=== PATIENT | female | born 1950 | race Two or more races ===

== ENCOUNTER → 2016-07-30 | Day surgery (SDC) | payer BC ==
[~2016-07-30] VITALS: Ht 152.4 cm; Wt 50.8 kg
[2016-07-30] VITALS (8 sets, daily range): BP systolic 135–159; BP diastolic 69–85
[~2016-07-30] MED LIST: ASPIR 8181 MG ORAL; Atropine Inj 1mg/10ml Syr IV PRN; BSS 15ml BTL ONE; BSS 500ml btl ONE; Bupivacaine 0.75% 30ml vial INJ ONE; Dexamethasone 4mg/ml vial ONE; DiphenhydrAMINE 50mg/ml Inj IVP PRN; EPINEPHrine 1mg/1ml Amp ONE; Goniosol 2.5% Opth Soln - 15ml ONE; Hydromorphone 0.5mg/0.5ml inj IVP PRN; Kenalog-40 1ml Vial ONE; Ketorolac 30mg Inj IV PRN; Ketorolac 30mg Inj ONE; Ketorolac 60mg Inj IV PRN; LORazepam Inj 2mg/ml 1ml IV PRN; LR 1000ml 1,000 ML IVLG SCH; LR 1000ml ONE; Labetalol 5mg/ml 20ml vial IV PRN; Lidocaine 1% MPF 10mg/ml 5ml ONE; Lidocaine 2% MPF 5ml Vial INJ ONE; Maxitrol Opth Oint 3.5gm ONE; Meperidine 25mg/ml Inj IV PRN; Metoclopramide 10mg/2ml Inj IVP PRN; Midazolam 2mg/2ml Inj IVP ONE; Midazolam 2mg/2ml Inj IVP PRN; NS Irrig 1000ml ONE; Norco 5mg/325mg tab ORAL PRN; Norco 7.5mg/325mg tab ORAL PRN; Oxycodone/Acetaminophen 5-325 ORAL PRN; Povidone-Iodine 5% opth solution ONE; Pred Forte 1% Opth Susp 1ml ONE; Propofol 10mg/ml 20ml IV ONE; fentaNYL 100 mcg/2 mL IV ONE; fentaNYL 100 mcg/2 mL IV PRN
[2016-07-30 16:33] LABS: BASOPHILS % (AUTO) 0.8 % (0.0-2.0); EOSINOPHILS % (AUTO) 1.5 % (0.0-3.0); LYMPHOCYTES % (AUTO) 26.6 % (20.0-45.0); MEAN CORPUSCULAR HEMOGLOBIN 30.3 PG (27.0-31.0); MEAN CORPUSCULAR HGB CONC 34.3 G/DL (32.0-36.0); MEAN CORPUSCULAR VOLUME 88 FL (80-99); MEAN PLATELET VOLUME 7.2 FL (6.5-10.1); MONOCYTES % (AUTO) 6.7 % (1.0-10.0); NEUTROPHILS % (AUTO) 64.4 % (45.0-75.0); PLATELET COUNT 424 K/UL (150-450); RED BLOOD COUNT 4.51 M/UL (4.20-5.40); RED CELL DISTRIBUTION WIDTH 11.3 % (11.6-14.8); WHITE BLOOD COUNT 8.9 K/UL (4.8-10.8)
[2016-07-30 16:53] LABS: INR 1.1 (0.9-1.1); PROTHROMBIN TIME 10.7 SEC (9.30-11.50)
[2016-07-30 17:00] LABS: ALANINE AMINOTRANSFERASE 37 U/L (3-33); ALBUMIN/GLOBULIN RATIO 1.4 (1.0-2.7); ANION GAP 18 (5-15); ASPARTATE AMINO TRANSFERASE 40 U/L (5-40); CALCIUM 10.5 mg/dL (8.6-10.2); CARBON DIOXIDE 25 mEQ/L (20-30); CHLORIDE 99 mEQ/L (98-107); CREATININE 0.8 mg/dL (0.5-0.9); GLOMERULAR FILTRATION RATE > 60 mL/min (>60); HEMOLYSIS 1; POTASSIUM 3.8 mEQ/L (3.4-4.9); SODIUM 142 mEQ/L (135-145); TOTAL PROTEIN 8.5 g/dL (6.6-8.7)
--- NOTE | 2016-07-30 17:15 | Anethesia Preoperative Eval ---
Anesthesia Pre-op PMH/ROS General Date of Evaluation: Jul 30, 2016 Time of Evaluation: 17:46 Anesthesiologist: Ghazal ASA Score: ASA 3 - Emergency Mallampati Score Class I : Soft palate, uvula, fauces, pillars visible Class II: Soft palate, uvula, fauces visible Class III: Soft palate, base of uvula visible Class IV: Only hard plate visible Mallampati Classification: Class II Surgeon: Karlee Diagnosis: Retinal Detachment OS Surgical Procedure: Vitrectomy OS Anesthesia History: none Family History: no anesthesia problems Allergies: Coded Allergies: No Known Allergies (Unverified , 07/30/16) Medications: see eMAR Past Medical History Cardiovascular: Reports: HTN, other - HL Anesthesia Pre-op Phys. Exam Physician Exam Last Vital Signs Date Time Temp Pulse Resp B/P Pulse Ox O2 Delivery O2 Flow Rate FiO2 07/30/16 16:39 98.2 72 14 158/84 100 Room Air Constitutional: NAD Neurologic: CN 2-12 intact Cardiovascular: RRR Respiratory: CTA Gastrointestinal: S/NT/ND Airway Exam Mallampati Score: Class II MO: full ROM: limited Teeth: intact Anesthesia Pre-op A/P Labs Hematology Test 07/30/16 16:15 White Blood Count 8.9 K/UL (4.8-10.8) Red Blood Count 4.51 M/UL (4.20-5.40) Hemoglobin 13.6 G/DL (12.0-16.0) Hematocrit 39.8 % (37.0-47.0) Mean Corpuscular Volume 88 FL (80-99) Mean Corpuscular Hemoglobin 30.3 PG (27.0-31.0) Mean Corpuscular Hemoglobin Concent 34.3 G/DL (32.0-36.0) Red Cell Distribution Width 11.3 % (11.6-14.8) L Platelet Count 424 K/UL (150-450) Mean Platelet Volume 7.2 FL (6.5-10.1) Neutrophils (%) (Auto) 64.4 % (45.0-75.0) Lymphocytes (%) (Auto) 26.6 % (20.0-45.0) Monocytes (%) (Auto) 6.7 % (1.0-10.0) Eosinophils (%) (Auto) 1.5 % (0.0-3.0) Basophils (%) (Auto) 0.8 % (0.0-2.0) Coagulation Test 07/30/16 16:15 Prothrombin Time 10.7 SEC (9.30-11.50) Prothromb Time International Ratio 1.1 (0.9-1.1) Activated Partial Thromboplast Time 28 SEC (23-33) Chemistry Test 07/30/16 16:15 Sodium Level Pending Potassium Level Pending Chloride Level Pending Carbon Dioxide Level Pending Blood Urea Nitrogen Pending Creatinine Pending Estimat Glomerular Filtration Rate Pending Glucose Level Pending Calcium Level Pending Total Bilirubin Pending Aspartate Amino Transf (AST/SGOT) Pending Alanine Aminotransferase (ALT/SGPT) Pending Alkaline Phosphatase Pending Total Protein Pending Albumin Pending Globulin Pending Risk Assessment & Plan Assessment: ASA 3E Plan: GA Status Change Before Surgery: Daniel Patel MD Jul 30, 2016 17:15
--- NOTE | 2016-07-30 17:16 | 48 Hour Post Anesthesia Eval ---
Post Anesthesia Evaluation Procedure: Vitrectomy OS Date of Evaluation: Jul 30, 2016 Time of Evaluation: 21:53 Blood Pressure Systolic: 156 0: 78 Pulse Rate: 78 Respiratory Rate: 18 Temperature (Fahrenheit): 97.6 O2 Sat by Pulse Oximetry: 97 Airway: patent Nausea: No Vomiting: No Pain Intensity: 1 Hydration Status: adequate Cardiopulmonary Status: Stable Mental Status/LOC: patient returned to baseline Follow-up Care/Observations: 0 Post-Anesthesia Complications: 0 Follow-up care needed: ready to discharge Daniel Harman MD Jul 30, 2016 17:16
--- NOTE | 2016-07-30 17:16 | Immediate Post-Op Evaluation ---
Immediate Post-Op Evalulation Immediate Post-Op Evalulation Procedure: Vitrectomy OS Date of Evaluation: Jul 30, 2016 Time of Evaluation: 19:49 IV Fluids: 800 LR Blood Products: 0 Estimated Blood Loss: 1 Urinary Output: 0 Blood Pressure Systolic: 149 Blood Pressure Diastolic: 78 Pulse Rate: 82 Respiratory Rate: 16 O2 Sat by Pulse Oximetry: 96 Temperature (Fahrenheit): 97.5 Pain Score (1-10): 1 Nausea: No Vomiting: No Complications 0 Patient Status: awake, reacts, patent, none Hydration Status: adequate Daniel Harman MD Jul 30, 2016 17:16
--- NOTE | 2016-07-30 17:51 | Emergency Room Report ---
History of Present Illness General Chief Complaint: Eye Problems Source: Patient Present Illness HPI The patient is a 66-year-old female presenting with Left eye retinal detachment. The patient states that she has noticed an obstruction to her vision from the left eye about one month prior. The patient states that she notices darkness over the left mid lower field of vision occasionally. Patient then saw her primary care physician who diagnosed her with retinal detachment today. Patient was told to come to the emergency department for same day surgery. The patient denies any pain in the eye and denies blurred vision, dizziness, fever, chills, headache, or any other symptoms. Allergies: Coded Allergies: No Known Allergies (Unverified , 07/30/16) Patient History Past Medical History: see triage record Pertinent Family History: none Now: No Reviewed Nursing Documentation: PMH: Agreed, PSxH: Agreed Nursing Documentation-PMH Past Medical History: No History, Except For Review of Systems All Other Systems: negative except mentioned in HPI Physical Exam Vital Signs Date Time Temp Pulse Resp B/P Pulse Ox O2 Delivery O2 Flow Rate FiO2 07/30/16 15:12 98.2 79 14 158/84 100 Room Air Sp02 EP Interpretation: reviewed, normal General Appearance: no apparent distress, alert, GCS 15, non-toxic Head: normocephalic, atraumatic Eyes: bilateral eye EOMI, bilateral eye PERRL, bilateral eye normal inspection ENT: hearing grossly normal, normal pharynx, no angioedema, normal voice Neck: full range of motion, supple/symm/no masses Respiratory: chest non-tender, lungs clear, normal breath sounds, speaking full sentences Cardiovascular #1: regular rate, rhythm, no edema Neurologic: alert, oriented x3, responsive, motor strength/tone normal, sensory intact, speech normal Psychiatric: judgement/insight normal, memory normal, mood/affect normal, no suicidal/homicidal ideation Skin: normal color, no rash, warm/dry, well hydrated Lymphatic: no adenopathy Medical Decision Making PA Attestation Dr. Cheng is my supervising physician. Patient management was discussed with my supervising physician Diagnostic Impression: Primary Impression: Retinal detachment ER Course The patient is a 66-year-old female presenting with Left eye retinal detachment Differential diagnosis considered: Retinal detachment, uveitis, artery/vein occlusion Physical exam: No apparent distress. Eyes: PERRL. EOMI. No periorbital edema. No injection. Please see nursing notes for visual acuity otherwise exam unremarkable CBC, CMP, PT/PTT unremarkable. 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 The patient is now sent to surgery. Laboratory Tests Test 07/30/16 16:15 White Blood Count 8.9 K/UL (4.8-10.8) Red Blood Count 4.51 M/UL (4.20-5.40) Hemoglobin 13.6 G/DL (12.0-16.0) Hematocrit 39.8 % (37.0-47.0) Mean Corpuscular Volume 88 FL (80-99) Mean Corpuscular Hemoglobin 30.3 PG (27.0-31.0) Mean Corpuscular Hemoglobin Concent 34.3 G/DL (32.0-36.0) Red Cell Distribution Width 11.3 % (11.6-14.8) L Platelet Count 424 K/UL (150-450) Mean Platelet Volume 7.2 FL (6.5-10.1) Neutrophils (%) (Auto) 64.4 % (45.0-75.0) Lymphocytes (%) (Auto) 26.6 % (20.0-45.0) Monocytes (%) (Auto) 6.7 % (1.0-10.0) Eosinophils (%) (Auto) 1.5 % (0.0-3.0) Basophils (%) (Auto) 0.8 % (0.0-2.0) Prothrombin Time 10.7 SEC (9.30-11.50) Prothrombin Time INR 1.1 (0.9-1.1) PTT 28 SEC (23-33) Sodium Level 142 mEQ/L (135-145) Potassium Level 3.8 mEQ/L (3.4-4.9) Chloride Level 99 mEQ/L (98-107) Carbon Dioxide Level 25 mEQ/L (20-30) Anion Gap 18 (5-15) H Blood Urea Nitrogen 12 mg/dL (7-23) Creatinine 0.8 mg/dL (0.5-0.9) Estimate Glomerular Filtration Rate > 60 mL/min (>60) Glucose Level 95 mg/dL (74-106) Calcium Level 10.5 mg/dL (8.6-10.2) H Total Bilirubin 0.3 mg/dL (0.0-1.2) Aspartate Amino Transferase (AST) 40 U/L (5-40) Alanine Aminotransferase (ALT) 37 U/L (3-33) H Alkaline Phosphatase 62 U/L (35-104) Total Protein 8.5 g/dL (6.6-8.7) Albumin 5.0 g/dL (3.5-5.2) Globulin 3.5 g/dL Albumin/Globulin Ratio 1.4 (1.0-2.7) Lab Results Impression CBC and CMP unremarkable. PT/PTT within normal limits Last Vital Signs Date Time Temp Pulse Resp B/P Pulse Ox O2 Delivery O2 Flow Rate FiO2 07/30/16 16:39 98.2 72 14 158/84 100 Room Air Status: improved Disposition: PLACE IN OBSERVATION - same day surgery Condition: Stable Referrals: NOEMI DUARTE M.D. (PCP) JUD EGAN Jul 30, 2016 17:51
--- NOTE | 2016-07-30 17:58 | Pre-Procedure Note/Attestation ---
Pre-Procedure Note/Attestation Complete Prior to Procedure Planned Procedure: left Procedure Narrative: Retinal detachment, left eye Indications for Procedure Pre-Operative Diagnosis: Retinal detachment, left eye Attestation I attest that I discussed the nature of the procedure; its benefits; risks and complications; and alternatives (and the risks and benefits of such alternatives ), prior to the procedure, with the patient (or the patient's legal food service representative). I attest that, if there was a reasonable possibility of needing a blood transfusion, the patient (or the patient's legal food service representative) was given the [facility] standardized written summary, pursuant to the [employer] [place] Blood Safety Act ([place] Health and Safety Code # 1645, as amended). I attest that I re-evaluated the patient just prior to the surgery and that there has been no change in the patient's H&P, except as documented below: Paxton Friedman M.D. Jul 30, 2016 17:58
--- NOTE | 2016-07-30 19:35 | Operative Note - PDOC ---
Operative Note Operative Note Pre-op Diagnosis: Retinal detachment, left eye Procedure: PPV/RTO/EL/AFE/C3F8 (14%) OS Post-op Diagnosis: Same Surgeon: Idalia Anesthesia: local Specimen: none Complications: none Condition: stable Estimated Blood Loss: minimal Drains: none Indications for Procedure Pre-operative Diagnosis: 1. Acute, superior, macula threatening retinal detachment, LEFT EYE 2. History of uveitis, LEFT EYE 3. Suspected glaucoma, LEFT EYE Post-operative Diagnosis: Same Procedure: Pars plana vitrectomy, endolaser, retinotomy, air-fluid exchange, C3F8 (14%) LEFT EYE Surgeon: Paxton Friedman M.D. Anesthesia: RB Complications: None Indications for the procedure: The patient has acute vision loss due retina detachment and warrants urgent surgery. After review of the risks, benefits, alternative and signing informed consent into the medical chart. Procedure performed: Description of Procedure [place] [facility] [place] was met in the pre-operative area where informed consent was reviewed. The operative eye was verified, marked and dilated. The patient was transferred to the operative suite, where cardiopulmonary monitoring was established and retrobulbar anesthetic was administered without complications. The eye was prepped and draped in sterile ophthalmic fashion. Under microscope visualization the 23 gauge infusion line was placed 4 millimeters inferotemporally. The infusion line was turned on. The superotemporal and superonasal cannulas were placed. Under ReSight visualization, peripheral and core vitrectomy was performed. Of note, the vitreous was extremely adherent to the posterior pole and vitreous base. PVD was completed and extensive peripheral shaving was performed. The vitreous over the superotemporal breaks was trimmed. A posterior RTO was created and subretinal fluid was drained. Inspection of the periphery revealed no new breaks or iatrogenic breaks. Air fluid exchange was performed and the retina reattached. Endolaser was applied to the retinal breaks and the retinotomy site. Laser treatment was avoided in the uncompromised retinal periphery to limited the risk of PVR. AFE was completed and C3F8 gas was infused into the eye. The cannulas were removed and the sclerotomies were sutured. The eye maintained normal intraocular pressure. Subconjunctival vancomycin and dexamethasone were administered. The lid speculum was removed. The eye was cleaned of prep and drape. Atropine drop and Maxitrol ointment was applied. A pressure patch was placed. The patient was turned over to the anesthesia team and transferred in stable condition to the PACU. Paxton Friedman M.D. Jul 30, 2016 19:35
--- NOTE | 2016-07-30 19:35 | Brief Operative Note ---
Immediate Post Operative Note Operative Note Pre-op Diagnosis: Retinal detachment, left eye Procedure: PPV/RTO/EL/AFE/C3F8 (14%) OS Post-op Diagnosis: Same Surgeon: Idalia Anesthesia: local Specimen: none Complications: none Condition: stable Estimated Blood Loss: minimal Drains: none Implant(s) used?: No Paxton Friedman M.D. Jul 30, 2016 19:35
== END | disposition home or self-care (01) ==
LOC: EMR 15:55 → SUR 16:20
DX: H33.22 Serous retinal detachment, left eye (principal); I10 Essential (primary) hypertension; E78.5 Hyperlipidemia, unspecified
CPT/HCPCS: 36415; 67108; 80053; 85025; 85610; 85730; 99284; J0171; J1100; J1885; J2250; J2704; J3010; J3370; J3490; J7120; 94003; 94150